=== PATIENT | female | born 1960 | race Caucasian/White ===

== ENCOUNTER 2016-12-29 22:31 | Emergency (ER) | payer OTHER ==
[2016-12-29 23:07] LABS: BLOOD UREA NITROGEN 17 mg/dL (7-18); CARBON DIOXIDE 22 mmol/L (21-32); CREATININE 0.9 mg/dL (0.6-1.3); GLUCOSE,RANDOM 88 mg/dL (70-99); POTASSIUM 3.1 mmol/L (3.5-5.1); SODIUM 141 mmol/L (136-145)
== END 2016-12-29 23:09 | disposition home or self-care (01) ==
LOC: ER 22:31
PROVIDERS: General Practice
DX: S80.922A Unspecified superficial injury of left lower leg, initial encounter (principal); V18.0XXA Pedal cycle driver injured in noncollision transport accident in nontraffic accident, initial encounter; Y92.410 Unspecified street and highway as the place of occurrence of the external cause; F17.210 Nicotine dependence, cigarettes, uncomplicated; Z88.2 Allergy status to sulfonamides; Z79.899 Other long term (current) drug therapy; Z79.891 Long term (current) use of opiate analgesic
CPT/HCPCS: 36415; 73590; 80048; 85379; 99283

== ENCOUNTER 2016-12-30 10:18 | Emergency (ER) | payer OTHER | END 2016-12-30 12:32 | disposition home or self-care (01) | LOC: ER 10:18 | DX: S80.12XA Contusion of left lower leg, initial encounter (principal); V19.3XXA Pedal cyclist (driver) (passenger) injured in unspecified nontraffic accident, initial encounter; I10 Essential (primary) hypertension; F41.9 Anxiety disorder, unspecified; Z88.2 Allergy status to sulfonamides; Z79.1 Long term (current) use of non-steroidal anti-inflammatories (NSAID); Z79.899 Other long term (current) drug therapy; Z79.891 Long term (current) use of opiate analgesic | CPT/HCPCS: 93971; 99283-25 ==